=== PATIENT | female | born 1990 | race Caucasian/White ===

== ENCOUNTER 2016-12-03 19:06 | Emergency (ER) | payer OTHER ==
[2016-12-03] MEDS ORDERED: KETOROLAC 30 MG/ML VIAL (J1885) As Ordered ONE (21:09)
[2016-12-03] MEDS ORDERED: diphenhydrAMINE INJ 50MG/ML VIAL (J1200) As Ordered ONE (21:09)
[2016-12-03] MEDS ORDERED: METOCLOPRAMIDE INJ 10MG/2ML VIAL (J2765) As Ordered ONE (21:09)
[2016-12-03 21:31] LABS: BASO # 0.1 K/mm3 (0.0-0.2); BASO % 0.8 % (0.0-1.0); EOS % 0.5 % (0.0-3.0); LARGE UNSTAINED CELL # 0.1 K/mm3 (0.0-0.4); LARGE UNSTAINED CELL % 1.2 % (0.0-4.0); LYMPH # 1.3 K/mm3 (1.5-6.5); LYMPH % 13.3 % (24.0-44.0); MEAN CORPUSCULAR HEMOGLOBIN 28.4 pg (27.0-33.0); MEAN CORPUSCULAR HGB CONC 33.7 g/dl (32.0-36.5); MEAN CORPUSCULAR VOLUME 84.3 fl (80.0-96.0); MONO # 0.4 K/mm3 (0.0-0.8); MONO % 3.8 % (0.0-5.0); NEUTROPHILS # 7.4 K/mm3 (1.8-7.7); NEUTROPHILS % 80.4 % (36.0-66.0); PLATELET COUNT, AUTOMATED 249 k/mm3 (150-450); RED CELL DISTRIBUTION WIDTH 12.3 % (11.5-14.5); WHITE BLOOD COUNT 9.2 K/mm3 (4.0-10.0)
[2016-12-03 21:44] LABS: CONTROL LINE HCG INT CTR LINE PRESENT
[2016-12-03 21:50] LABS: ALBUMIN 4.2 GM/DL (3.2-5.2); ALKALINE PHOSPHATASE 62 U/L (45-117); ALT/SGPT 128 U/L (12-78); ANION GAP 10 MEQ/L (8-16); AST/SGOT 55 U/L (15-37); BILIRUBIN,DIRECT 0.2 MG/DL (0.0-0.2); BILIRUBIN,TOTAL 0.7 MG/DL (0.2-1.0); BLOOD UREA NITROGEN 13 MG/DL (7-18); CALCIUM LEVEL 9.2 MG/DL (8.5-10.1); CARBON DIOXIDE LEVEL 27 MEQ/L (21-32); CHLORIDE LEVEL 105 MEQ/L (98-107); CREATININE FOR GFR 0.86 MG/DL (0.55-1.02); GLOMERULAR FILTRATION RATE > 60.0 (>60); GLUCOSE, FASTING 90 MG/DL (70-105); POTASSIUM SERUM 3.7 MEQ/L (3.5-5.1); SODIUM LEVEL 142 MEQ/L (136-145); TOTAL PROTEIN 8.4 GM/DL (6.4-8.2)
--- NOTE | 2016-12-03 23:13 | EDDOCDS ---
Physician Documentation [facility] Name: Stephania Neal Age: 25 yrs Sex: Female : 1990 Arrival Date: 12/03/2016 Time: 19:06 Bed I1 / M1 Private MD: Other - Complete Info On Cds Disposition: 12/03/16 23:00 Discharged to Home/Self Care. Impression: Vomiting, Diarrhea, unspecified, Migraine without aura, not intractable. - Condition is Stable. - Discharge Instructions: Migraine Headache, Nausea and Vomiting. - Prescriptions for ZOFRAN ODT 4 mg - dissolve 1 tablet by ORAL route 4 times per day As needed do not chew, do not swallow whole; 10 tablet. - Medication Reconciliation, Local Pharmacy Hours form. - Follow up: Private Physician; When: Call to arrange an appointment; Reason: Recheck today's complaints, Continuance of care. - Problem is new. - Symptoms are unchanged. Historical: - Allergies: no known allergies; - Home Meds: 1. sumatriptan succinate 25 mg oral tab 1 tab as needed - PMHx: Migraine Headaches; - PSHx: R femur surgery; control implant in L arm; - Social history: Smoking status: Patient states was never smoker of tobacco. No barriers to communication noted, The patient speaks fluent [place]. - Family history: Not pertinent. - : The pt / caregiver states he / she is not on anticoagulants. Home medication list is obtained from the patient. - Exposure Risk Screening:: None identified. 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 2 in. (157.48 cm) (R); Pain 4/10; 22:04 Temp 98.7(O); cjh 22:09 BP 92 / 55 LA Sitting (auto/reg); Pulse 51 MON; Resp 18 S; Pulse Ox 97% on R/A; Pain cln 0/10; 22:54 BP 99 / 61; Pulse 51; Resp 16; Temp 99.2; Pulse Ox 100% ; Pain 0/10; cjh 19:08 Body Mass Index 29.26 (72.57 kg, 157.48 cm) dd6 MDM: 21:03 NS 0.9% 1000 ml IV at bolus once ordered. mo1 21:03 ketorolac 30 mg IVP once ordered. mo1 21:03 IV Saline Lock ordered. mo1 21:03 Undress patient appropriately for examination ordered. mo1 21:03 Metoclopramide 10 mg IV at 40 mg/hr once over 15 mins ordered. mo1 21:03 diphenhydrAMINE 25 mg IVP once ordered. mo1 21:04 Basic Metabolic Profile Ordered. EDMS 21:04 CBC with Diff Ordered. EDMS 21:04 Liver Profile Ordered. EDMS 21:04 Urinalysis Ordered. EDMS 21:04 NOTHING BY MOUTH+DIET ordered. EDMS 21:15 HCG,Serum Qualitative Ordered. EDMS 21:40 UCG by Nursing ordered. mo1 21:49 CBC with Diff Reviewed. mo1 21:50 HCG,Serum Qualitative Reviewed. mo1 22:02 Urinalysis Reviewed. mo1 22:02 Liver Profile Reviewed. mo1 22:02 Basic Metabolic Profile Reviewed. mo1 22:18 Urine Culture Ordered. EDNC Point of Care Testing: Urine : 21:41 hCG Reading: Negative; Control Reading: Positive; [facility] Ranges: Administered Medications: 21:42 Drug: Metoclopramide 10 mg [metoclopramide 5 mg/mL injection solution] Route: IV; Rate: cjh 40 mg/hr; Infused Over: 15 mins; Site: right antecubital; 21:42 Drug: diphenhydrAMINE 25 mg [diphenhydramine 50 mg/mL injection solution (0.5 mL)] [facility] Route: IVP; Site: right antecubital; 21:43 Drug: NS 0.9% 1000 ml Route: IV; Rate: bolus; Site: right antecubital; [facility] 21:43 Drug: ketorolac 30 mg [ketorolac 30 mg/mL (1 mL) injection solution (1 mL)] Route: IVP; [facility] Site: right antecubital; Signatures: Dispatcher [employer] EDMS Ani Sidhu RN RN [facility] Mushtaq Vieyra PA PA mo1 Rosina Gibson RN RN ms18 MTDD
--- NOTE | 2016-12-03 23:13 | EDDOCDS ---
Nurse's Notes [facility] Name: Stephania Neal Age: 25 yrs Sex: Female : 1990 Arrival Date: 12/03/2016 Time: 19:06 Bed I1 / M1 Private MD: Other - Complete Info On Cds Diagnosis: Vomiting;Diarrhea, unspecified;Migraine without aura, not intractable Presentation: 12/03 19:19 Presenting complaint: Patient states: that she has been throwing up since 11/24/16, ms18 diarrhea and she has a migraine. Adult Sepsis Screening: The patient does not have new or worsening altered mentation. Patient's respiratory rate is less than 22. Systolic blood pressure is greater than 100. Patient has a qSOFA score of 0- Negative Sepsis Screen. Suicide/Homicide risk assessment- the patient denies having any suicidal and/or homicidal ideations and does not present with any other emotional, behavioral or mental health complaints. 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 Transition of care: patient was not received from another setting of care. 19:19 Acuity: AMBROSIO Level 3 ms18 19:19 Method Of Arrival: Walkin/Carried/Asstd ms18 Triage Assessment: 19:22 General: Appears in no apparent distress. Pain: Location: right eye, left eye, right ms18 yazidism and left yazidism Pain currently is 10 out of 10 on a pain scale. Pt Declines HIV testing. Neurological: Level of Consciousness is awake, alert, obeys commands, Oriented to person, place, time, Reports dizziness, headache photophobia. Respiratory: Airway is patent Respiratory effort is even, unlabored. GI: Reports nausea. Derm: Skin is pink, warm & dry. 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 sumatriptan succinate 25 mg oral tab 1 tab as needed - PMHx: Migraine Headaches; - PSHx: R femur surgery; control implant in L arm; - Social history: Smoking status: Patient states was never smoker of tobacco. No barriers to communication noted, The patient speaks fluent [place]. - Family history: Not pertinent. - : The pt / caregiver states he / she is not on anticoagulants. Home medication list is obtained from the patient. - Exposure Risk Screening:: None identified. Screenin:05 Screening information is obtained from the patient. Fall risk: No risks identified. [facility] Assistance ADL's: requires no assistance with activities of daily living. Abuse/DV Screen: The patient / caregiver reports he/she is: not in a situation that causes fear, pain or injury. Nutritional screening: No deficits noted. Advance Directives: There is no active DNR order. home support is adequate. Assessment: 21:05 General: Appears in no apparent distress, comfortable, Behavior is appropriate for age, [facility] cooperative. GI: Abdomen is non- distended Bowel sounds present X 4 quads. Abd is soft and non tender X 4 quads. Derm: Skin is pink, warm & dry. 22:55 General: Appears in no apparent distress, comfortable, Behavior is appropriate for age, [facility] cooperative, states feels much better and is awaiting dispo. 23:10 General: reviewed discharge instructions, patient denies further needs. [facility] Vital Signs: 19:08 BP 112 / 65; Pulse 56; Resp 18 S; Temp 94.4(T); Pulse Ox 99% on R/A; Weight 72.57 kg dd6 (R); Height 5 ft. 2 in. (157.48 cm) (R); Pain 4/10; 22:04 Temp 98.7(O); [facility] 22:09 BP 92 / 55 LA Sitting (auto/reg); Pulse 51 MON; Resp 18 S; Pulse Ox 97% on R/A; Pain cln 0/10; 22:54 BP 99 / 61; Pulse 51; Resp 16; Temp 99.2; Pulse Ox 100% ; Pain 0/10; h 19:08 Body Mass Index 29.26 (72.57 kg, 157.48 cm) dd6 Vitals: 19:08 Log In Time: December 03, 2016 at 19:08. dd6 ED Course: 19:07 Patient visited by Aba Hoskins PCA. dd6 19:07 Other - Complete Info On Cds is Private Physician. dd6 19:07 Patient moved to Waiting dd6 19:09 Patient visited by Aba Hoskins PCA. dd6 19:10 Patient moved to Pre RCE dd6 19:21 Triage Initiated ms18 20:47 Mushtaq Vieyra PA is PHCP. mo1 20:47 Alexis Manzanares MD is Attending Physician. mo1 20:47 Patient moved to Triage 2 ar3 20:55 Patient visited by Mushtaq Vieyra PA. mo1 21:02 Patient moved to I1 / M1 jmb 21:05 The patient / caregiver is instructed regarding the plan of care and ED course. cjh 21:05 No procedures done that require assistance. cj 21:21 Patient visited by Mario Smith RN. jf3 21:21 HCG,Serum Qualitative Sent. jf3 21:21 Basic Metabolic Profile Sent. jf3 21:21 CBC with Diff Sent. jf3 21:21 Liver Profile Sent. jf3 21:21 Inserted saline lock: 20 gauge in right antecubital area The patient tolerated the jf3 procedure well. 22:10 Patient visited by Eli Rios PCA. cln 22:18 Urine Culture Sent. cln 22:55 Patient visited by Ani Sidhu RN. cj 23:10 Discontinued lock intact, bleeding controlled, pressure dressing applied, No cj redness/swelling at site. Administered Medications: 21:42 Drug: Metoclopramide 10 mg [metoclopramide 5 mg/mL injection solution] Route: IV; Rate: cjh 40 mg/hr; Infused Over: 15 mins; Site: right antecubital; 21:42 Drug: diphenhydrAMINE 25 mg [diphenhydramine 50 mg/mL injection solution (0.5 mL)] [facility] Route: IVP; Site: right antecubital; 21:43 Drug: NS 0.9% 1000 ml Route: IV; Rate: bolus; Site: right antecubital; [facility] 21:43 Drug: ketorolac 30 mg [ketorolac 30 mg/mL (1 mL) injection solution (1 mL)] Route: IVP; [facility] Site: right antecubital; Point of Care Testing: Urine : 21:41 hCG Reading: Negative; Control Reading: Positive; [facility] Ranges: Order Results: Lab Order: Basic Metabolic Profile; SPEC'M 12/03/16 21:20 Test: GLUCOSE, FASTING; Value: 90; Range: 70-105; Units: MG/DL; Status: F Test: BLOOD UREA NITROGEN; Value: 13; Range: 7-18; Units: MG/DL; Status: F Test: CREATININE FOR GFR; Value: 0.86; Range: 0.55-1.02; Units: MG/DL; Status: F Test: GLOMERULAR FILTRATION RATE; Value: > 60.0; Range: >60; Status: F Test: SODIUM LEVEL; Value: 142; Range: 136-145; Units: MEQ/L; Status: F Test: POTASSIUM SERUM; Value: 3.7; Range: 3.5-5.1; Units: MEQ/L; Status: F Test: CHLORIDE LEVEL; Value: 105; Range: 98-107; Units: MEQ/L; Status: F Test: CARBON DIOXIDE LEVEL; Value: 27; Range: 21-32; Units: MEQ/L; Status: F Test: ANION GAP; Value: 10; Range: 8-16; Units: MEQ/L; Status: F Test: CALCIUM LEVEL; Value: 9.2; Range: 8.5-10.1; Units: MG/DL; Status: F Test Note: ; Units are mL/min/1.73 m2 Chronic Kidney Disease Staging per NKF: Stage I & II GFR >=60 Normal to Mildly Decreased Stage III GFR 30-59 Moderately Decreased Stage IV GFR 15-29 Severely Decreased Stage V GFR <15 Very Little GFR Left ESRD GFR <15 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 Lab Order: CBC with Diff; SPEC'M 12/03/16 21:20 Test: WHITE BLOOD COUNT; Value: 9.2; Range: 4.0-10.0; Units: K/mm3; Status: F Test: RED BLOOD COUNT; Value: 5.27; Range: 4.00-5.40; Units: M/mm3; Status: F Test: HEMOGLOBIN; Value: 15.0; Range: 12.0-16.0; Units: g/dl; Status: F Test: HEMATOCRIT; Value: 44.4; Range: 36.0-47.0; Units: %; Status: F Test: MEAN CORPUSCULAR VOLUME; Value: 84.3; Range: 80.0-96.0; Units: fl; Status: F Test: MEAN CORPUSCULAR HEMOGLOBIN; Value: 28.4; Range: 27.0-33.0; Units: pg; Status: F Test: MEAN CORPUSCULAR HGB CONC; Value: 33.7; Range: 32.0-36.5; Units: g/dl; Status: F Test: RED CELL DISTRIBUTION WIDTH; Value: 12.3; Range: 11.5-14.5; Units: %; Status: F Test: PLATELET COUNT, AUTOMATED; Value: 249; Range: 150-450; Units: k/mm3; Status: F Test: NEUTROPHILS %; Value: 80.4; Range: 36.0-66.0; Abnormal: Above high normal; Units: %; Status: F Test: LYMPH %; Value: 13.3; Range: 24.0-44.0; Abnormal: Below low normal; Units: %; Status: F Test: MONO %; Value: 3.8; Range: 0.0-5.0; Units: %; Status: F Test: EOS %; Value: 0.5; Range: 0.0-3.0; Units: %; Status: F Test: BASO %; Value: 0.8; Range: 0.0-1.0; Units: %; Status: F Test: LARGE UNSTAINED CELL %; Value: 1.2; Range: 0.0-4.0; Units: %; Status: F Test: NEUTROPHILS #; Value: 7.4; Range: 1.8-7.7; Units: K/mm3; Status: F Test: LYMPH #; Value: 1.3; Range: 1.5-6.5; Abnormal: Below low normal; Units: K/mm3; Status: F Test: MONO #; Value: 0.4; Range: 0.0-0.8; Units: K/mm3; Status: F Test: EOS #; Value: 0.0; Range: 0.0-0.50; Units: K/mm3; Status: F Test: BASO #; Value: 0.1; Range: 0.0-0.2; Units: K/mm3; Status: F Test: LARGE UNSTAINED CELL #; Value: 0.1; Range: 0.0-0.4; Units: K/mm3; Status: F Lab Order: Liver Profile; SPEC'M 12/03/16 21:20 Test: AST/SGOT; Value: 55; Range: 15-37; Abnormal: Above high normal; Units: U/L; Status: F Test: ALT/SGPT; Value: 128; Range: 12-78; Abnormal: Above high normal; Units: U/L; Status: F Test: ALKALINE PHOSPHATASE; Value: 62; Range: 45-117; Units: U/L; Status: F Test: BILIRUBIN,TOTAL; Value: 0.7; Range: 0.2-1.0; Units: MG/DL; Status: F Test: BILIRUBIN,DIRECT; Value: 0.2; Range: 0.0-0.2; Units: MG/DL; Status: F Test: TOTAL PROTEIN; Value: 8.4; Range: 6.4-8.2; Abnormal: Above high normal; Units: GM/DL; Status: F Test: ALBUMIN; Value: 4.2; Range: 3.2-5.2; Units: GM/DL; Status: F Test: ALBUMIN/GLOBULIN RATIO; Value: 1.00; Range: 1.00-1.93; Status: F Lab Order: Urinalysis; SPEC'M 12/03/16 21:25 Test: APPEARANCE, URINE; Value: CLOUDY; Range: CLEAR; Abnormal: Above high normal; Status: F Test: COLOR, URINE; Value: YELLOW; Range: YELLOW; Status: F Test: PH,URINE; Value: 7.0; Range: 5.0-9.0; Units: UNITS; Status: F Test: SPECIFIC GRAVITY URINE AUTO; Value: 1.024; Range: 1.002-1.035; Status: F Test: PROTEIN, URINE AUTO; Value: 1+; Range: NEGATIVE; Abnormal: Above high normal; Units: mg/dL; Status: F Test: GLUCOSE, URINE (UA) AUTO; Value: NEGATIVE; Range: NEGATIVE; Units: mg/dL; Status: F Test: KETONE, URINE AUTO; Value: 1+; Range: NEGATIVE; Abnormal: Above high normal; Units: mg/dL; Status: F Test: UROBILINOGEN, URINE AUTO; Value: 0.2; Range: 0.0-2.0; Units: mg/dL; Status: F Test: BILIRUBIN, URINE AUTO; Value: NEGATIVE; Range: NEGATIVE; Status: F Test: NITRITE, URINE AUTO; Value: NEGATIVE; Range: NEGATIVE; Status: F Test: LEUKOCYTE ESTERASE, URINE AUTO; Value: 1+; Range: NEGATIVE; Abnormal: Above high normal; Status: F Test: BLOOD, URINE BLOOD; Value: NEGATIVE; Range: NEGATIVE; Status: F Test: WBC, URINE AUTO; Value: 6; Range: 0-3; Abnormal: Above high normal; Units: /HPF; Status: F Test: RBC, URINE AUTO; Value: 7; Range: 0-3; Abnormal: Above high normal; Units: /HPF; Status: F Test: BACTERIA, URINE AUTO; Value: 1+; Range: NEGATIVE; Abnormal: Above high normal; Status: F Test: SQUAMOUS EPITHELIAL CELL UR AU; Value: 4; Range: 0-6; Units: /HPF; Status: F Test: MUCUS, URINE; Value: MODERATE; Range: NEGATIVE; Status: F Test: HYALINE CAST, URINE AUTO; Value: 0; Range: 0-1; Units: /LPF; Status: F Test: AMORPHOUS SEDIMENT; Value: SMALL; Range: NEGATIVE; Abnormal: Above high normal; Status: F Lab Order: HCG,Serum Qualitative; SPEC'M 12/03/16 21:20 Test: HCG, SERUM QUALITATIVE; Value: NEGATIVE; Range: NEGATIVE; Status: F Outcome: 23:00 Discharge ordered by Provider. mo1 23:10 Discharge Assessment: Patient awake, alert and oriented x 3. No cognitive and/or [facility] functional deficits noted. Patient verbalized understanding of disposition instructions. patient administered narcotics - no. The following High Risk Discharge criteria are identified: None. Discharged to home ambulatory. Condition: good Condition: stable Condition: improved. Discharge instructions given to patient, Instructed on discharge instructions, follow up and referral plans. medication usage, Demonstrated understanding of instructions, medications, Pt was receptive of discharge instructions/ teaching. Prescriptions given X 1. No special radiology studies were completed. Property :Personal belongings accompany Pt. 23:12 Patient left the ED. [facility] Signatures: Aba Hoskins, STRATEGIC DEVELOPMENT MANAGER STRATEGIC DEVELOPMENT MANAGER dd6 Francisca Rosen, STRATEGIC DEVELOPMENT MANAGER STRATEGIC DEVELOPMENT MANAGER ar3 Ani SidhuRN ROSA [facility] Mushtaq Vieyra PA PA mo1 Valentin Jolly RN RN jmb Smith, Mallory, RN RN ms18 Mario Smith,ROSA RN jf3 Eli Rios, STRATEGIC DEVELOPMENT MANAGER STRATEGIC DEVELOPMENT MANAGER cln Corrections: (The following items were deleted from the chart) 22:14 21:00 General: Appears in no apparent distress, comfortable, Behavior is appropriate [facility] for age, cooperative, [facility] 22: 21:00 GI: Abdomen is non- distended Bowel sounds present X 4 quads. Abd is soft and non [facility] tender X 4 quads. [facility] 21:00 Derm: Skin is pink, warm & dry. [facility]
--- NOTE | 2016-12-06 00:13 | EDDOCDS ---
Physician Documentation [facility] Name: Stephania Neal Age: 25 yrs Sex: Female : 1990 Arrival Date: 12/03/2016 Time: 19:06 Bed I1 / M1 Private MD: Other - Complete Info On Cds Disposition: 12/03/16 23:00 Discharged to Home/Self Care. Impression: Vomiting, Diarrhea, unspecified, Migraine without aura, not intractable. - Condition is Stable. - Discharge Instructions: Migraine Headache, Nausea and Vomiting. - Prescriptions for ZOFRAN ODT 4 mg - dissolve 1 tablet by ORAL route 4 times per day As needed do not chew, do not swallow whole; 10 tablet. - Medication Reconciliation, Local Pharmacy Hours form. - Follow up: Private Physician; When: Call to arrange an appointment; Reason: Recheck today's complaints, Continuance of care. - Problem is new. - Symptoms are unchanged. Historical: - Allergies: no known allergies; - Home Meds: 1. sumatriptan succinate 25 mg oral tab 1 tab as needed - PMHx: Migraine Headaches; - PSHx: R femur surgery; control implant in L arm; - Social history: Smoking status: Patient states was never smoker of tobacco. No barriers to communication noted, The patient speaks fluent [place]. - Family history: Not pertinent. - : The pt / caregiver states he / she is not on anticoagulants. Home medication list is obtained from the patient. - Exposure Risk Screening:: None identified. 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 2 in. (157.48 cm) (R); Pain 4/10; 22:04 Temp 98.7(O); cjh 22:09 BP 92 / 55 LA Sitting (auto/reg); Pulse 51 MON; Resp 18 S; Pulse Ox 97% on R/A; Pain cln 0/10; 22:54 BP 99 / 61; Pulse 51; Resp 16; Temp 99.2; Pulse Ox 100% ; Pain 0/10; cjh 19:08 Body Mass Index 29.26 (72.57 kg, 157.48 cm) dd6 MDM: 21:03 NS 0.9% 1000 ml IV at bolus once ordered. mo1 21:03 ketorolac 30 mg IVP once ordered. mo1 21:03 IV Saline Lock ordered. mo1 21:03 Undress patient appropriately for examination ordered. mo1 21:03 Metoclopramide 10 mg IV at 40 mg/hr once over 15 mins ordered. mo1 21:03 diphenhydrAMINE 25 mg IVP once ordered. mo1 21:04 Basic Metabolic Profile Ordered. EDMS 21:04 CBC with Diff Ordered. EDMS 21:04 Liver Profile Ordered. EDMS 21:04 Urinalysis Ordered. EDMS 21:04 NOTHING BY MOUTH+DIET ordered. EDMS 21:15 HCG,Serum Qualitative Ordered. EDMS 21:40 UCG by Nursing ordered. mo1 21:49 CBC with Diff Reviewed. mo1 21:50 HCG,Serum Qualitative Reviewed. mo1 22:02 Urinalysis Reviewed. mo1 22:02 Liver Profile Reviewed. mo1 22:02 Basic Metabolic Profile Reviewed. mo1 22:18 Urine Culture Ordered. EDMS 23:14 [facility] Agreement was scanned into [employer] and attached to record. [facility] 23:14 Financial registration complete. [facility] 12/04 04:47 T-Sheet-- Draft Copy was scanned into [employer] and attached to record. [facility] Point of Care Testing: Urine : 12/03 21:41 hCG Reading: Negative; Control Reading: Positive; [facility] Ranges: Administered Medications: 21:42 Drug: Metoclopramide 10 mg [metoclopramide 5 mg/mL injection solution] Route: IV; Rate: cjh 40 mg/hr; Infused Over: 15 mins; Site: right antecubital; 21:42 Drug: diphenhydrAMINE 25 mg [diphenhydramine 50 mg/mL injection solution (0.5 mL)] [facility] Route: IVP; Site: right antecubital; 21:43 Drug: NS 0.9% 1000 ml Route: IV; Rate: bolus; Site: right antecubital; [facility] 21:43 Drug: ketorolac 30 mg [ketorolac 30 mg/mL (1 mL) injection solution (1 mL)] Route: IVP; [facility] Site: right antecubital; Signatures: Dispatcher [employer] Ani Davila RN RN [facility] Mushtaq Vieyra PA PA mo1 Rosina Gibson RN RN ms18 Arel, Samina Lawson The chart was reviewed and I authenticate all verbal orders and agree with the evaluation and treatment provided.Attachments: 23:14 [facility] Payment Agreement marie 12/04 04:47 T-Sheet-- Draft Copy eder Chart Complete MTDD
--- NOTE | 2016-12-06 00:13 | EDDOCDS ---
Nurse's Notes [facility] Name: Stephania Neal Age: 25 yrs Sex: Female : 1990 Arrival Date: 12/03/2016 Time: 19:06 Bed I1 / M1 Private MD: Other - Complete Info On Cds Diagnosis: Vomiting;Diarrhea, unspecified;Migraine without aura, not intractable Presentation: 12/03 19:19 Presenting complaint: Patient states: that she has been throwing up since 11/24/16, ms18 diarrhea and she has a migraine. Adult Sepsis Screening: The patient does not have new or worsening altered mentation. Patient's respiratory rate is less than 22. Systolic blood pressure is greater than 100. Patient has a qSOFA score of 0- Negative Sepsis Screen. Suicide/Homicide risk assessment- the patient denies having any suicidal and/or homicidal ideations and does not present with any other emotional, behavioral or mental health complaints. 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 Transition of care: patient was not received from another setting of care. 19:19 Acuity: AMBROSIO Level 3 ms18 19:19 Method Of Arrival: Walkin/Carried/Asstd ms18 Triage Assessment: 19:22 General: Appears in no apparent distress. Pain: Location: right eye, left eye, right ms18 holiness and left holiness Pain currently is 10 out of 10 on a pain scale. Pt Declines HIV testing. Neurological: Level of Consciousness is awake, alert, obeys commands, Oriented to person, place, time, Reports dizziness, headache photophobia. Respiratory: Airway is patent Respiratory effort is even, unlabored. GI: Reports nausea. Derm: Skin is pink, warm & dry. FICTION AND NONFICTION AUTHOR: 19:22 LMP N/A - control method ms18 Historical: - Allergies: no known allergies; - Home Meds: 1. sumatriptan succinate 25 mg oral tab 1 tab as needed - PMHx: Migraine Headaches; - PSHx: R femur surgery; control implant in L arm; - Social history: Smoking status: Patient states was never smoker of tobacco. No barriers to communication noted, The patient speaks fluent Syriac. - Family history: Not pertinent. - : The pt / caregiver states he / she is not on anticoagulants. Home medication list is obtained from the patient. - Exposure Risk Screening:: None identified. Screenin:05 Screening information is obtained from the patient. Fall risk: No risks identified. [facility] Assistance ADL's: requires no assistance with activities of daily living. Abuse/DV Screen: The patient / caregiver reports he/she is: not in a situation that causes fear, pain or injury. Nutritional screening: No deficits noted. Advance Directives: There is no active DNR order. home support is adequate. Assessment: 21:05 General: Appears in no apparent distress, comfortable, Behavior is appropriate for age, [facility] cooperative. GI: Abdomen is non- distended Bowel sounds present X 4 quads. Abd is soft and non tender X 4 quads. Derm: Skin is pink, warm & dry. 22:55 General: Appears in no apparent distress, comfortable, Behavior is appropriate for age, [facility] cooperative, states feels much better and is awaiting dispo. 23:10 General: reviewed discharge instructions, patient denies further needs. [facility] Vital Signs: 19:08 BP 112 / 65; Pulse 56; Resp 18 S; Temp 94.4(T); Pulse Ox 99% on R/A; Weight 72.57 kg dd6 (R); Height 5 ft. 2 in. (157.48 cm) (R); Pain 4/10; 22:04 Temp 98.7(O); [facility] 22:09 BP 92 / 55 LA Sitting (auto/reg); Pulse 51 MON; Resp 18 S; Pulse Ox 97% on R/A; Pain cln 0/10; 22:54 BP 99 / 61; Pulse 51; Resp 16; Temp 99.2; Pulse Ox 100% ; Pain 0/10; h 19:08 Body Mass Index 29.26 (72.57 kg, 157.48 cm) dd6 Vitals: 19:08 Log In Time: December 03, 2016 at 19:08. dd6 ED Course: 19:07 Patient visited by Aba Hoskins PCA. dd6 19:07 Other - Complete Info On Cds is Private Physician. dd6 19:07 Patient moved to Waiting dd6 19:09 Patient visited by Aba Hoskins PCA. dd6 19:10 Patient moved to Pre RCE dd6 19:21 Triage Initiated ms18 20:47 Mushtaq Vieyra PA is PHCP. mo1 20:47 Alexis Manzanares MD is Attending Physician. mo1 20:47 Patient moved to Triage 2 ar3 20:55 Patient visited by Mushtaq Vieyra PA. mo1 21:02 Patient moved to I1 / M1 jmb 21:05 The patient / caregiver is instructed regarding the plan of care and ED course. cjh 21:05 No procedures done that require assistance. cj 21:21 Patient visited by Mario Smith RN. jf3 21:21 HCG,Serum Qualitative Sent. jf3 21:21 Basic Metabolic Profile Sent. jf3 21:21 CBC with Diff Sent. jf3 21:21 Liver Profile Sent. jf3 21:21 Inserted saline lock: 20 gauge in right antecubital area The patient tolerated the jf3 procedure well. 22:10 Patient visited by Eli Rios PCA. cln 22:18 Urine Culture Sent. cln 22:55 Patient visited by Ani Sidhu RN. cj 23:10 Discontinued lock intact, bleeding controlled, pressure dressing applied, No cj redness/swelling at site. 23:14 [facility] Payment Agreement was scanned into makemoji and attached to record. [facility] 23:21 Patient name changed from Stephania\S\\S\Ángel\S\ to Stephania\S\ \S\Ángel. EDMS 03 04:47 T-Sheet-- Draft Copy was scanned into makemoji and attached to record. lja Administered Medications: 12/03 21:42 Drug: Metoclopramide 10 mg [metoclopramide 5 mg/mL injection solution] Route: IV; Rate: cjh 40 mg/hr; Infused Over: 15 mins; Site: right antecubital; 21:42 Drug: diphenhydrAMINE 25 mg [diphenhydramine 50 mg/mL injection solution (0.5 mL)] [facility] Route: IVP; Site: right antecubital; 21:43 Drug: NS 0.9% 1000 ml Route: IV; Rate: bolus; Site: right antecubital; [facility] 21:43 Drug: ketorolac 30 mg [ketorolac 30 mg/mL (1 mL) injection solution (1 mL)] Route: IVP; [facility] Site: right antecubital; Point of Care Testing: Urine : 21:41 hCG Reading: Negative; Control Reading: Positive; [facility] Ranges: Order Results: Lab Order: Basic Metabolic Profile; SPEC'M 12/03/16 21:20 Test: GLUCOSE, FASTING; Value: 90; Range: 70-105; Units: MG/DL; Status: F Test: BLOOD UREA NITROGEN; Value: 13; Range: 7-18; Units: MG/DL; Status: F Test: CREATININE FOR GFR; Value: 0.86; Range: 0.55-1.02; Units: MG/DL; Status: F Test: GLOMERULAR FILTRATION RATE; Value: > 60.0; Range: >60; Status: F Test: SODIUM LEVEL; Value: 142; Range: 136-145; Units: MEQ/L; Status: F Test: POTASSIUM SERUM; Value: 3.7; Range: 3.5-5.1; Units: MEQ/L; Status: F Test: CHLORIDE LEVEL; Value: 105; Range: 98-107; Units: MEQ/L; Status: F Test: CARBON DIOXIDE LEVEL; Value: 27; Range: 21-32; Units: MEQ/L; Status: F Test: ANION GAP; Value: 10; Range: 8-16; Units: MEQ/L; Status: F Test: CALCIUM LEVEL; Value: 9.2; Range: 8.5-10.1; Units: MG/DL; Status: F Test Note: ; Units are mL/min/1.73 m2 Chronic Kidney Disease Staging per NKF: Stage I & II GFR >=60 Normal to Mildly Decreased Stage III GFR 30-59 Moderately Decreased Stage IV GFR 15-29 Severely Decreased Stage V GFR <15 Very Little GFR Left ESRD GFR <15 on CUT OUT OPERATOR Lab Order: CBC with Diff; SPEC'M 12/03/16 21:20 Test: WHITE BLOOD COUNT; Value: 9.2; Range: 4.0-10.0; Units: K/mm3; Status: F Test: RED BLOOD COUNT; Value: 5.27; Range: 4.00-5.40; Units: M/mm3; Status: F Test: HEMOGLOBIN; Value: 15.0; Range: 12.0-16.0; Units: g/dl; Status: F Test: HEMATOCRIT; Value: 44.4; Range: 36.0-47.0; Units: %; Status: F Test: MEAN CORPUSCULAR VOLUME; Value: 84.3; Range: 80.0-96.0; Units: fl; Status: F Test: MEAN CORPUSCULAR HEMOGLOBIN; Value: 28.4; Range: 27.0-33.0; Units: pg; Status: F Test: MEAN CORPUSCULAR HGB CONC; Value: 33.7; Range: 32.0-36.5; Units: g/dl; Status: F Test: RED CELL DISTRIBUTION WIDTH; Value: 12.3; Range: 11.5-14.5; Units: %; Status: F Test: PLATELET COUNT, AUTOMATED; Value: 249; Range: 150-450; Units: k/mm3; Status: F Test: NEUTROPHILS %; Value: 80.4; Range: 36.0-66.0; Abnormal: Above high normal; Units: %; Status: F Test: LYMPH %; Value: 13.3; Range: 24.0-44.0; Abnormal: Below low normal; Units: %; Status: F Test: MONO %; Value: 3.8; Range: 0.0-5.0; Units: %; Status: F Test: EOS %; Value: 0.5; Range: 0.0-3.0; Units: %; Status: F Test: BASO %; Value: 0.8; Range: 0.0-1.0; Units: %; Status: F Test: LARGE UNSTAINED CELL %; Value: 1.2; Range: 0.0-4.0; Units: %; Status: F Test: NEUTROPHILS #; Value: 7.4; Range: 1.8-7.7; Units: K/mm3; Status: F Test: LYMPH #; Value: 1.3; Range: 1.5-6.5; Abnormal: Below low normal; Units: K/mm3; Status: F Test: MONO #; Value: 0.4; Range: 0.0-0.8; Units: K/mm3; Status: F Test: EOS #; Value: 0.0; Range: 0.0-0.50; Units: K/mm3; Status: F Test: BASO #; Value: 0.1; Range: 0.0-0.2; Units: K/mm3; Status: F Test: LARGE UNSTAINED CELL #; Value: 0.1; Range: 0.0-0.4; Units: K/mm3; Status: F Lab Order: Liver Profile; SPEC'M 12/03/16 21:20 Test: AST/SGOT; Value: 55; Range: 15-37; Abnormal: Above high normal; Units: U/L; Status: F Test: ALT/SGPT; Value: 128; Range: 12-78; Abnormal: Above high normal; Units: U/L; Status: F Test: ALKALINE PHOSPHATASE; Value: 62; Range: 45-117; Units: U/L; Status: F Test: BILIRUBIN,TOTAL; Value: 0.7; Range: 0.2-1.0; Units: MG/DL; Status: F Test: BILIRUBIN,DIRECT; Value: 0.2; Range: 0.0-0.2; Units: MG/DL; Status: F Test: TOTAL PROTEIN; Value: 8.4; Range: 6.4-8.2; Abnormal: Above high normal; Units: GM/DL; Status: F Test: ALBUMIN; Value: 4.2; Range: 3.2-5.2; Units: GM/DL; Status: F Test: ALBUMIN/GLOBULIN RATIO; Value: 1.00; Range: 1.00-1.93; Status: F Lab Order: [facility]inalysis; [facility] 12/03/16 21:25 Test: APPEARANCE, URINE; Value: CLOUDY; Range: CLEAR; Abnormal: Above high normal; Status: F Test: COLOR, URINE; Value: YELLOW; Range: YELLOW; Status: F Test: PH,URINE; Value: 7.0; Range: 5.0-9.0; Units: UNITS; Status: F Test: SPECIFIC GRAVITY URINE AUTO; Value: 1.024; Range: 1.002-1.035; Status: F Test: PROTEIN, URINE AUTO; Value: 1+; Range: NEGATIVE; Abnormal: Above high normal; Units: mg/dL; Status: F Test: GLUCOSE, URINE (UA) AUTO; Value: NEGATIVE; Range: NEGATIVE; Units: mg/dL; Status: F Test: KETONE, URINE AUTO; Value: 1+; Range: NEGATIVE; Abnormal: Above high normal; Units: mg/dL; Status: F Test: UROBILINOGEN, URINE AUTO; Value: 0.2; Range: 0.0-2.0; Units: mg/dL; Status: F Test: BILIRUBIN, URINE AUTO; Value: NEGATIVE; Range: NEGATIVE; Status: F Test: NITRITE, URINE AUTO; Value: NEGATIVE; Range: NEGATIVE; Status: F Test: LEUKOCYTE ESTERASE, URINE AUTO; Value: 1+; Range: NEGATIVE; Abnormal: Above high normal; Status: F Test: BLOOD, URINE BLOOD; Value: NEGATIVE; Range: NEGATIVE; Status: F Test: WBC, URINE AUTO; Value: 6; Range: 0-3; Abnormal: Above high normal; Units: /HPF; Status: F Test: RBC, URINE AUTO; Value: 7; Range: 0-3; Abnormal: Above high normal; Units: /HPF; Status: F Test: BACTERIA, URINE AUTO; Value: 1+; Range: NEGATIVE; Abnormal: Above high normal; Status: F Test: SQUAMOUS EPITHELIAL CELL UR AU; Value: 4; Range: 0-6; Units: /HPF; Status: F Test: MUCUS, URINE; Value: MODERATE; Range: NEGATIVE; Status: F Test: HYALINE CAST, URINE AUTO; Value: 0; Range: 0-1; Units: /LPF; Status: F Test: AMORPHOUS SEDIMENT; Value: SMALL; Range: NEGATIVE; Abnormal: Above high normal; Status: F Lab Order: HCG,Serum Qualitative; SPEC'M 12/03/16 21:20 Test: HCG, SERUM QUALITATIVE; Value: NEGATIVE; Range: NEGATIVE; Status: F Lab Order: Urine Culture; SPEC'M 12/03/16 21:25 Test: URINE CULTURE; Value: URINE CULTURE RESULT NO GROWTH; Status: F Outcome: 23:00 Discharge ordered by Provider. mo1 23:10 Discharge Assessment: Patient awake, alert and oriented x 3. No cognitive and/or [facility] functional deficits noted. Patient verbalized understanding of disposition instructions. patient administered narcotics - no. The following High Risk Discharge criteria are identified: None. Discharged to home ambulatory. Condition: good Condition: stable Condition: improved. Discharge instructions given to patient, Instructed on discharge instructions, follow up and referral plans. medication usage, Demonstrated understanding of instructions, medications, Pt was receptive of discharge instructions/ teaching. Prescriptions given X 1. No special radiology studies were completed. Property :Personal belongings accompany Pt. 23:12 Patient left the ED. [facility] Signatures: Dispatcher [employer] EDMS Aba Hoskins, AUTO ROLLER AUTO ROLLER dd6 Silas, Francisca, AUTO ROLLER AUTO ROLLER ar3 Ani Sidhu,RN RN [facility] Mushtaq Vieyra PA PA mo1 Valentin Jolly,RN RN Rosina Glover RN RN ms18 Arel, Mario Matt RN RN jf3 Samina Horvath, Eli, AUTO ROLLER AUTO ROLLER cln Corrections: (The following items were deleted from the chart) : 21:00 General: Appears in no apparent distress, comfortable, Behavior is appropriate [facility] for age, cooperative, [facility] 22: 21:00 GI: Abdomen is non- distended Bowel sounds present X 4 quads. Abd is soft and non [facility] tender X 4 quads. [facility] 22: 21:00 Derm: Skin is pink, warm & dry. [facility] Chart Complete [facility]
--- NOTE | 2016-12-06 00:13 | EDDOCDS ---
Physician Documentation [facility] Name: Stephania Neal Age: 25 yrs Sex: Female : 1990 Arrival Date: 12/03/2016 Time: 19:06 Bed I1 / M1 Private MD: Other - Complete Info On Cds Disposition: 12/03/16 23:00 Discharged to Home/Self Care. Impression: Vomiting, Diarrhea, unspecified, Migraine without aura, not intractable. - Condition is Stable. - Discharge Instructions: Migraine Headache, Nausea and Vomiting. - Prescriptions for ZOFRAN ODT 4 mg - dissolve 1 tablet by ORAL route 4 times per day As needed do not chew, do not swallow whole; 10 tablet. - Medication Reconciliation, Local Pharmacy Hours form. - Follow up: Private Physician; When: Call to arrange an appointment; Reason: Recheck today's complaints, Continuance of care. - Problem is new. - Symptoms are unchanged. Historical: - Allergies: no known allergies; - Home Meds: 1. sumatriptan succinate 25 mg oral tab 1 tab as needed - PMHx: Migraine Headaches; - PSHx: R femur surgery; control implant in L arm; - Social history: Smoking status: Patient states was never smoker of tobacco. No barriers to communication noted, The patient speaks fluent Faroese. - Family history: Not pertinent. - : The pt / caregiver states he / she is not on anticoagulants. Home medication list is obtained from the patient. - Exposure Risk Screening:: None identified. 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 2 in. (157.48 cm) (R); Pain 4/10; 22:04 Temp 98.7(O); cjh 22:09 BP 92 / 55 LA Sitting (auto/reg); Pulse 51 MON; Resp 18 S; Pulse Ox 97% on R/A; Pain cln 0/10; 22:54 BP 99 / 61; Pulse 51; Resp 16; Temp 99.2; Pulse Ox 100% ; Pain 0/10; cjh 19:08 Body Mass Index 29.26 (72.57 kg, 157.48 cm) dd6 MDM: 21:03 NS 0.9% 1000 ml IV at bolus once ordered. mo1 21:03 ketorolac 30 mg IVP once ordered. mo1 21:03 IV Saline Lock ordered. mo1 21:03 Undress patient appropriately for examination ordered. mo1 21:03 Metoclopramide 10 mg IV at 40 mg/hr once over 15 mins ordered. mo1 21:03 diphenhydrAMINE 25 mg IVP once ordered. mo1 21:04 Basic Metabolic Profile Ordered. EDMS 21:04 CBC with Diff Ordered. EDMS 21:04 Liver Profile Ordered. EDMS 21:04 Urinalysis Ordered. EDMS 21:04 NOTHING BY MOUTH+DIET ordered. EDMS 21:15 HCG,Serum Qualitative Ordered. EDMS 21:40 UCG by Nursing ordered. mo1 21:49 CBC with Diff Reviewed. mo1 21:50 HCG,Serum Qualitative Reviewed. mo1 22:02 Urinalysis Reviewed. mo1 22:02 Liver Profile Reviewed. mo1 22:02 Basic Metabolic Profile Reviewed. mo1 22:18 Urine Culture Ordered. EDMS 23:14 [facility] [place] Payment Agreement was scanned into [employer] and attached to record. [facility] 23:14 Financial registration complete. [facility] 12/04 04:47 T-Sheet-- Draft Copy was scanned into [employer] and attached to record. [facility] Point of Care Testing: Urine : 12/03 21:41 hCG Reading: Negative; Control Reading: Positive; [facility] Ranges: Administered Medications: 21:42 Drug: Metoclopramide 10 mg [metoclopramide 5 mg/mL injection solution] Route: IV; Rate: cjh 40 mg/hr; Infused Over: 15 mins; Site: right antecubital; 21:42 Drug: diphenhydrAMINE 25 mg [diphenhydramine 50 mg/mL injection solution (0.5 mL)] [facility] Route: IVP; Site: right antecubital; 21:43 Drug: NS 0.9% 1000 ml Route: IV; Rate: bolus; Site: right antecubital; [facility] 21:43 Drug: ketorolac 30 mg [ketorolac 30 mg/mL (1 mL) injection solution (1 mL)] Route: IVP; [facility] Site: right antecubital; Signatures: Dispatcher [employer] Ani Davila RN RN [facility] Mushtaq Vieyra PA PA mo1 Rosina Gibson RN RN ms18 Arel, Samina Lawson The chart was reviewed and I authenticate all verbal orders and agree with the evaluation and treatment provided.Attachments: 23:14 [facility] Payment Agreement marie 12/04 04:47 T-Sheet-- Draft Copy eder Chart Complete MTDD
== END 2016-12-03 23:12 | disposition home or self-care (01) ==
LOC: M ED 19:06
DX: E86.0 Dehydration (principal); G43.909 Migraine, unspecified, not intractable, without status migrainosus; R19.7 Diarrhea, unspecified; R11.2 Nausea with vomiting, unspecified
CPT/HCPCS: 80048; 80076; 81001; 81025; 84703; 85025; 87086; 96374; 96375; 99284; J1200; J1885; J2765

== ENCOUNTER 2017-07-26 03:10 | Emergency (ER) | payer OTHER ==
[~2017-07-26] VITALS: Ht 160 cm; Wt 72.7 kg
[2017-07-26 03:16] VITALS: BP 118/79
[2017-07-26] MEDS ORDERED: ZYRT10TA2 PO (03:19)
[2017-07-26] MEDS ORDERED: IMIT50TA PO (03:19)
[2017-07-26] MEDS ORDERED: METOCLOPRAMIDE INJ 10MG/2ML VIAL (J2765) IV ONE (04:00)
[2017-07-26] MEDS ORDERED: KETOROLAC 30 MG/ML VIAL (J1885) IV ONE (04:00)
[2017-07-26] MEDS ORDERED: diphenhydrAMINE INJ 50MG/ML VIAL (J1200) IV ONE (04:00)
[2017-07-26] MEDS ORDERED: NS 1,000 ML IV ONE (04:00)
== END 2017-07-26 05:27 | disposition home or self-care (01) ==
LOC: M ED 03:10
DX: G43.909 Migraine, unspecified, not intractable, without status migrainosus (principal); Z79.899 Other long term (current) drug therapy
CPT/HCPCS: 96361; 96374; 96375; 99283; J1200; J1885; J2765